=== PATIENT | female | born 1950 | race Caucasian/White ===

== ENCOUNTER 2019-08-21 09:49 | Day surgery (SDC) ==
--- NOTE | 2019-08-07 08:31 | EKG Report ---
Test Performed on : 08/07/2019 08:13:48 AM Test Reason : PAT Blood Pressure : / mmHG Vent. Rate : 079 BPM Atrial Rate : 079 BPM P-R Int : 184 ms QRS Dur : 150 ms QT Int : 416 ms P-R-T Axes : 044 -06 137 degrees QTc Int : 477 ms Normal sinus rhythm. Left bundle branch block Abnormal ECG No previous ECGs available Confirmed by Olu ORDAZ, P.J.M ([id number]) on 08/07/2019 7:59:01 PM
[2019-08-07 08:50] LABS: URINE SOURCE CLEAN CATCH
[2019-08-07 09:11] LABS: BASO# 0.01 X1000 (0.0-0.2); BASO% 0.2 % (0.0-0.8); EOS# 0.03 X1000 (0.0-0.7); EOS% 0.6 % (0.0-10.0); HEMATOCRIT 41.3 % (37.0-47.0); HEMOGLOBIN 13.6 g/dL (12.0-16.0); LYMPH# 1.31 X1000 (1.2-3.4); MCH 30.6 PG (27-31); MCHC 32.9 g/dL (33-37); MCV 92.8 FL (81-99); MONO# 0.34 X1000 (0.11-0.59); NEUT# 3.16 X1000 (1.4-6.5); NEUT% 65.2 % (42.2-75.2); PLT 160 X1000 (130-400); RBC 4.45 XMIL (4.2-5.4); RDW 12.9 % (11.5-14.5); WBC 4.85 X1000 (4.8-10.8)
[2019-08-07 09:15] LABS: BILIRUBIN URINE NEGATIVE (NEGATIVE); BLOOD URINE NEGATIVE (NEGATIVE); COLOR YELLOW; GLUCOSE URINE NEGATIVE (NEGATIVE); KETONE URINE NEGATIVE (NEGATIVE); LEUKOCYTES URINE NEGATIVE (NEGATIVE); NITRITE URINE NEGATIVE (NEGATIVE); PH URINE 5.5; PROTEIN URINE NEGATIVE (NEGATIVE); SP GRAVITY URINE 1.026; TURBIDITY URINE CLEAR (CLEAR); UROBILINOGEN URINE NORMAL (NORMAL)
[2019-08-07 09:17] LABS: INR 0.92; PROTIME 12.5 Seconds (11.0-16.0); UR EPITHELIAL CELLS <10 /HPF (<10); URINE BACTERIA NEGATIVE /HPF; URINE RBC <10 /HPF (<10); URINE WBC <10 /HPF (<10)
[2019-08-07 09:30] LABS: HEMOGLOBIN A1C 5.5 % (4.8-6.0)
[2019-08-07 09:38] LABS: AGAP 11; BUN 17 mg/dL (8-22); CALCIUM 9.1 mg/dL (8.8-10.2); CHLORIDE 102 mmol/L (98-107); COSMO 280; CREATININE 0.9 mg/dL (0.5-0.9); ESTIMATED GFR > 60; GLUCOSE 117 mg/dL (70-104); POTASSIUM 3.3 mmol/L (3.5-5.1); SODIUM 139 mmol/L (136-145); TCO2 26 mmol/L (25-35)
[2019-08-21] MEDS ORDERED: COLACE ONE (10:11)
[2019-08-21] MEDS ORDERED: PEPCID ONE (10:11)
[2019-08-21] MEDS ORDERED: KEFZOL 1 GM/D5W 2 GM/100 ML IVPB ONE (10:12)
[2019-08-21] MEDS ORDERED: CELEBREX ONE (10:12)
[2019-08-21] MEDS ORDERED: REGLAN ONE (10:12)
[2019-08-21] MEDS ORDERED: LYRICA ONE (10:12)
[2019-08-21] MEDS ORDERED: LR 1,000 ML ONE (10:12)
[2019-08-21] MEDS ORDERED: DIPRIVAN 1% ONE (10:23)
[2019-08-21] MEDS ORDERED: XYLOCAINE-MPF 2% ONE (10:24)
[2019-08-21] MEDS ORDERED: FENTANYL ONE (10:26)
[2019-08-21] MEDS ORDERED: KEFZOL ONE (12:14)
[2019-08-21] MEDS ORDERED: MARCAINE 0.25% PF ONE (12:14)
[2019-08-21] MEDS ORDERED: DURAMORPH ONE (12:14)
[2019-08-21] MEDS ORDERED: TORADOL ONE (12:14)
[2019-08-21] MEDS ORDERED: EXPAREL 1.3% ONE (12:15)
[2019-08-21] MEDS ORDERED: SODIUM CHLORIDE 0.9% ONE (12:15)
[2019-08-21] MEDS ORDERED: VANCOMYCIN ONE (12:16)
[2019-08-21] MEDS ORDERED: VERSED ONE (12:42)
[2019-08-21] MEDS: CYKLOKAPRON 1,000 MG/NS 2,000 MG/200 ML IVPB ONE ×2 (13:05→14:28)
[2019-08-21] MEDS ORDERED: EPHEDRINE ONE (13:06)
[2019-08-21] MEDS ORDERED: DECADRON ONE (13:14)
[2019-08-21] MEDS ORDERED: OFIRMEV 1000 MG/ISOTONIC SOLN 1,000 MG/100 ML BOTTLE ONE (13:14)
[2019-08-21] MEDS ORDERED: ZOFRAN ONE (13:14)
[2019-08-21] MEDS ORDERED: NARCAN ONE (13:22)
[2019-08-21] MEDS ORDERED: ROBINUL ONE (14:02)
[2019-08-21 15:10] LABS: URINE SOURCE CATH
[2019-08-21] MEDS ORDERED: NS 1,000 ML ONE (15:15)
[2019-08-21 15:25] LABS: BILIRUBIN URINE NEGATIVE (NEGATIVE); BLOOD URINE NEGATIVE (NEGATIVE); COLOR ORANGE; GLUCOSE URINE NEGATIVE (NEGATIVE); KETONE URINE NEGATIVE (NEGATIVE); LEUKOCYTES URINE NEGATIVE (NEGATIVE); NITRITE URINE NEGATIVE (NEGATIVE); PH URINE 5.5; PROTEIN URINE TRACE mg/dL (NEGATIVE); SP GRAVITY URINE 1.029; TURBIDITY URINE TURBID (CLEAR); UROBILINOGEN URINE NORMAL (NORMAL)
[2019-08-21 15:26] LABS: UR EPITHELIAL CELLS <10 /HPF (<10); URINE BACTERIA NEGATIVE /HPF; URINE RBC <10 /HPF (<10); URINE WBC <10 /HPF (<10)
--- NOTE | 2019-08-21 15:45 | Diag Imaging Result Doc PS360 ---
EXAM: KNEE 1-2 VIEWS-RIGHT INDICATION: R TKA TECHNIQUE: 2 views COMPARISON: None. FINDINGS: There has been a recent right knee arthroplasty. The arthroplasty hardware is in the expected position. There is no evidence of periprosthetic fracture. Anterior skin giovana and a drainage catheter are in place. IMPRESSION: Satisfactory postoperative knee. Electronically signed by Brody Tristan 08/21/2019 3:43 PM
[2019-08-21] MEDS: NS 1,000 ML IV SCH ×2 (17:00→19:19)
[2019-08-21] MEDS ORDERED: MORPHINE IV PRN ×3 (17:00)
[2019-08-21] MEDS ORDERED: OXY IR PO PRN ×2 (17:00)
[2019-08-21] MEDS ORDERED: ZOFRAN PO PRN (17:00)
[2019-08-21] MEDS: PERIDEX MT SCH (20:23)
[2019-08-21] MEDS: TYLENOL PO SCH (20:23)
[2019-08-21] MEDS: KEFZOL 2 GM/D5W 2 GM/50 ML IVPB IV SCH (20:24)
[2019-08-21] MEDS: COLACE PO SCH (20:24)
[2019-08-22] MEDS: KEFZOL 2 GM/D5W 2 GM/50 ML IVPB IV SCH ×2 (03:40→07:31)
[2019-08-22] MEDS: TYLENOL PO SCH ×2 (03:41→08:57)
[2019-08-22] MEDS: ASPIRIN PO SCH ×2 (03:41→08:52)
[2019-08-22 07:22] LABS: HEMOGLOBIN 11.6 g/dL (12.0-16.0)
[2019-08-22 07:46] LABS: AGAP 12; BUN 13 mg/dL (8-22); CALCIUM 9.2 mg/dL (8.8-10.2); CHLORIDE 104 mmol/L (98-107); COSMO 281; CREATININE 0.8 mg/dL (0.5-0.9); ESTIMATED GFR > 60; GLUCOSE 160 mg/dL (70-104); POTASSIUM 4.1 mmol/L (3.5-5.1); SODIUM 139 mmol/L (136-145); TCO2 23 mmol/L (25-35)
[2019-08-22 07:53] VITALS: BP 165/77
--- NOTE | 2019-08-22 08:04 | OPERATIVE NOTE ---
PROCEDURE DATE: 08/21/2019 PREOPERATIVE DIAGNOSIS: Degenerative osteoarthritis of the right knee. POSTOPERATIVE DIAGNOSIS: Degenerative osteoarthritis of the right knee. PROCEDURE: Right total knee arthroplasty with DePuy Attune size 6 narrow posterior stabilized femur, a size 6 tibial tray, a 7 mm rotating platform tibial insert, and a 35 mm medialized anatomic patella. SURGEON: Dr. Valero. STAFF COUNSELOR: Karla Kebede who was necessary proper retraction and manipulation of the extremity during the case. SECOND SEAT JOINER: Clyde Ag RN. ANESTHESIA: Spinal. IV FLUIDS: Was 3000 mL lactated Ringer's. ESTIMATED BLOOD LOSS: 30 mL. TOURNIQUET TIME: 90 minutes at 350 mmHg. COMPLICATIONS: None. INDICATION: The patient is a 68-year-old female with a chronic history of pain and discomfort of the right knee. Has had continued pain and discomfort despite appropriate nonoperative treatment. X-rays revealed degenerative osteoarthritis and recommendation to proceed with right total knee arthroplasty was offered. Risks and benefits of surgery were explained including risks of anesthesia, , bleeding, infection, failure to relieve pain, postop stiffness, nerve injury, blood clots, and other imponderables. All questions answered. The patient wished to proceed with surgery. DETAILS OF OPERATION: The patient was taken to the operating room and underwent spinal anesthesia. After adequate anesthesia was obtained, the patient was placed supine on the operating table. Right lower extremity was subsequently prepped and draped in usual sterile fashion. Esmarch was used to exsanguinate the right lower extremity. The tourniquet was inflated to 350 mmHg. A standard anterior incision made with a skin knife. Medial and skin envelopes developed. Standard medial parapatellar arthrotomy was then performed. Patella was everted and resected in standard fashion. A protective disk was then placed. Retractors then placed. Approximately 1 cm anterior to the PCL insertion, starting reamer was passed. Intramedullary guide with a distal femoral cutting block was pinned in position. The distal femoral cut was performed in standard fashion. A sizing block was placed which measured a size 6. Corresponding pins were placed. Anterior, posterior and chamfer cuts were then made. Attention then turned to the proximal tibia where using the extramedullary guide, the proximal tibia cutting block was pinned in position and had good alignment confirmed with the alignment michael. The proximal tibia was then resected. Medial and lateral menisci were excised. A curved osteotome was used to remove the posterior osteophytes off the distal femur. A spacer block was then placed and had good soft tissue balance in both flexion and extension. Attention turned back to the proximal tibia where a size 6 tibial tray appeared to be the correct size. This was pinned in position. This was followed by a central reamer and a fin punch. A box cutting guide was pinned on the distal femur. A box cut was then performed. The trial femoral component was then placed and 2 lug holes were drilled. A trial tibial insert was then placed and had good soft tissue balancing. Attention was turned to the patella and the protective disk was removed. The size 35 appeared to be the correct size. Corresponding holes were drilled. Trial patella component was then placed and it had good patellofemoral tracking. The trial components were then removed. Copious irrigation performed with antibiotic pulsatile lavage. Vancomycin was mixed cement on back table. Sequential cementing was then performed first with the tibial tray and excess cement with a [place] followed by the femoral component. Excess cement was removed with a [place] followed by trial tibial insert in full extension and axial loading was maintained while cement cured. The patella component was cemented in standard fashion. The attention then turned to the patella and patella component was cemented in standard fashion. Patella clamp was placed. While cement was curing, Exparel was placed in deep soft tissue, as well as the subcutaneous tissue. After cement had cured, peripheral cement was removed with small osteotome. The 7 mm rotating platform tibial insert appeared the correct size. The trial insert was removed. Exparel was placed deep posterior capsule. Copious irrigation performed with pulsatile lavage. A 7 mm rotating platform tibial insert was then placed. The knee was then carried through range of motion. Good range of motion, good soft tissue balance, good patellofemoral tracking. A 1/8 Hemovac drain was placed and was not sewn in. Copious irrigation then performed once again with pulsatile lavage. #1 Vicryl was used to repair the arthrotomy followed by 2-0 Vicryl subcutaneous tissue and skin giovana. Sterile 4x4s, Webril, cryo unit, and William wrap applied to the right lower extremity. Patient tolerated the procedure well and was transferred to the recovery room in stable condition. cc: Ede Valero MD
[2019-08-22] MEDS: PERIDEX MT SCH (08:57)
[2019-08-22] MEDS: COLACE PO SCH (08:57)
--- NOTE | 2019-08-22 12:57 | ORTHOPAEDICS PROGRESS NOTE ---
DATE: 08/22/2019 SUBJECTIVE: The patient is a pleasant, 68-year-old female, who is 1 day status post right total knee arthroplasty. She is currently resting comfortably. PHYSICAL EXAMINATION: The patient's right lower extremity dressing is intact. Her calf is soft. She has active dorsiflexion and plantar flexion. She is neurovascularly intact distally. LABORATORY DATA: Pending. IMPRESSION: Postoperative day #1 status post right total knee arthroplasty. PLAN: At this point, will have the patient discharging home later today if she is able to mobilize well with Physical Therapy. Will arrange for home physical therapy. The patient will follow up in the office on 09/03/2019. cc: Ede Valero MD
== END 2019-08-22 11:56 | disposition home or self-care (01) ==
LOC: 4N 09:49 → OR 09:49
PROVIDERS: ATTEND Orthopaedic Surgery Adult Reconstructive Orthopaedic Surgery